=== PATIENT | male | born 1970 | race Caucasian/White ===

== ENCOUNTER 2017-07-26 20:30 | Inpatient (IN) | payer SELFPAY ==
--- NOTE | 2017-07-26 21:32 | RAD ---
PORTABLE CHEST: Date: 07/26/17 PROVIDED CLINICAL HISTORY: Chest pain. FINDINGS: Cardiac and mediastinal silhouette is within normal limits. Lungs appear clear. There is no pleural f luid or pneumothorax apparent. IMPRESSION: No evidence for an acute cardiopulmonary process. POS: SUSY
[2017-07-26 21:40] LABS: #Basophils 0.1 thou/uL (0.0-0.2); #Eosinphils 0.1 thou/uL (0.0-0.7); #Lymphocytes 3.6 thou/uL (1.20-3.40); #Monocytes 1.3 thou/uL (0.11-0.59); #Neutrophils 7.9 thou/uL (1.40-6.50); %Basophils 0.6 % (0.0-1.0); %Eosinophils 1.1 % (0.0-10.0); %Lymphocytes 27.8 % (21.0-51.0); %Neutrophils 60.5 % (42.0-75.0); Hemoglobin 17.3 g/dL (14.0-18.0); Mean Corpuscular HGB CONC 34.1 g/dL (32.0-36.0); Mean Corpuscular Hemoglobin 31.2 pg (27.0-31.0); Mean Corpuscular Volume 91.5 fl (80.0-94.0); Mean Platelet Volume 6.3 fL (7.4-10.4); Platelet Count 300 thou/uL (130-400); Red Blood Cell (RBC) Count 5.55 mill/uL (4.70-6.10); White Blood Cell (WBC) Count 13.1 thou/uL (4.8-10.8)
[2017-07-26 22:11] LABS: ALT (SGPT) 59 U/L (8-55); AST (SGOT) 96 U/L (5-34); Albumin 4.4 g/dL (3.5-5.0); Alkaline Phosphatase 75 U/L (40-150); Anion Gap 12 mmol/L (10-20); BUN (Urea Nitrogen) 12 mg/dL (8.9-20.6); Bilirubin, Total 0.9 mg/dL (0.2-1.2); CK (CPK) 932 U/L (30-200); Calc. Creatinine Clearance 0 mL/min (70-130); Carbon Dioxide 25 mmol/L (22-29); Chloride 101 mmol/L (98-107); Estimated GFR-MDRD 81; Globulin 4.9 g/dL (2.4-3.5); Glucose 126 mg/dL (70-105); Lipase 18 U/L (8-78); Potassium 3.3 mmol/L (3.5-5.1); Protein, Total 9.3 g/dL (6.0-8.3); Sodium 135 mmol/L (136-145)
[2017-07-26 22:12] LABS: CKMB 74.7 ng/mL (0-6.6); Troponin I 6.916 ng/mL (< 0.028)
[2017-07-26] MEDS ORDERED: Nitroglycerin 2% Ointment 1 INCH/1 GM Packet ONE (22:30)
[2017-07-26] MEDS ORDERED: Metoprolol Tartrate 5 MG/5 ML VIAL ONE ×2 (23:41→23:56)
[2017-07-26] MEDS ORDERED: Morphine 4 MG/ML VIAL ONE (23:42)
[2017-07-26] MEDS ORDERED: Nitroglycerin 0.4 MG TAB (25 Tab Bottle) ONE (23:54)
[2017-07-26] MEDS ORDERED: Nitroglycerin 50 MG/250 ML BOT 250 ML ONE (23:54)
[2017-07-27] MEDS ORDERED: Guaifenesin DM 100-10/5 ML UDCUP PO PRN (00:18)
[2017-07-27] MEDS ORDERED: Nitroglycerin 50 MG/250 ML BOT 250 ML IVPB SCH (00:18)
[2017-07-27] MEDS ORDERED: Acetaminophen 325 MG TAB PO PRN (00:18)
[2017-07-27] MEDS ORDERED: Nitroglycerin 0.4 MG TAB (25 Tab Bottle) SL PRN ×2 (00:18→10:46)
[2017-07-27 00:46] LABS: Platelet Count 290 thou/uL (130-400)
[2017-07-27 01:05] LABS: Troponin I 16.481 ng/mL (< 0.028)
[2017-07-27] MEDS ORDERED: Heparin 25,000 units/D5W 500 ML ONE (01:16)
[2017-07-27] MEDS ORDERED: Heparin 5,000 UNITS/ML VIAL ONE (01:16)
[2017-07-27] MEDS ORDERED: Ondansetron ODT 4 MG TAB ONE (01:45)
[2017-07-27 03:15] LABS: #Basophils 0.1 thou/uL (0.0-0.2); #Eosinphils 0.1 thou/uL (0.0-0.7); #Lymphocytes 3.9 thou/uL (1.20-3.40); #Monocytes 1.6 thou/uL (0.11-0.59); #Neutrophils 9.5 thou/uL (1.40-6.50); %Basophils 0.4 % (0.0-1.0); %Eosinophils 0.9 % (0.0-10.0); %Lymphocytes 25.7 % (21.0-51.0); %Monocytes 10.7 % (0.0-10.0); %Neutrophils 62.4 % (42.0-75.0); Hemoglobin 17.2 g/dL (14.0-18.0); Mean Corpuscular Hemoglobin 32.2 pg (27.0-31.0); Mean Corpuscular Volume 91.8 fl (80.0-94.0); Mean Platelet Volume 6.3 fL (7.4-10.4); Platelet Count 278 thou/uL (130-400); Red Blood Cell (RBC) Count 5.34 mill/uL (4.70-6.10); White Blood Cell (WBC) Count 15.3 thou/uL (4.8-10.8)
[2017-07-27 03:31] LABS: ALT (SGPT) 60 U/L (8-55); AST (SGOT) 127 U/L (5-34); Albumin 4.2 g/dL (3.5-5.0); Alkaline Phosphatase 70 U/L (40-150); Anion Gap 10 mmol/L (10-20); BUN (Urea Nitrogen) 12 mg/dL (8.9-20.6); Bilirubin, Total 0.8 mg/dL (0.2-1.2); Calc. Creatinine Clearance 0 mL/min (70-130); Calcium 9.8 mg/dL (7.8-10.44); Carbon Dioxide 27 mmol/L (22-29); Cardiac Risk 4.4 (Less than 4.5); Chloride 103 mmol/L (98-107); Cholesterol 189 mg/dl (< 200 Desired); Estimated GFR-MDRD Greater than 90; Globulin 4.5 g/dL (2.4-3.5); Glucose 131 mg/dL (70-105); HDL Cholesterol 43 mg/dL (>60 Neg Risk); LDL Cholesterol, Calculated 133 mg/dL; Potassium 3.6 mmol/L (3.5-5.1); Protein, Total 8.7 g/dL (6.0-8.3); Sodium 136 mmol/L (136-145); Triglycerides 67 mg/dL (Less than 150)
[2017-07-27 03:35] LABS: INR-International Normal Ratio 1.1; Prothrombin Time 14.6 SEC (12.0-14.7)
[2017-07-27 03:36] LABS: PTT 82.6 SEC (22.9-36.1)
[2017-07-27 03:38] LABS: Troponin I 24.625 ng/mL (< 0.028)
[2017-07-27 04:03] VITALS: BMI 26.7
--- NOTE | 2017-07-27 05:27 | HP ---
REASON FOR ADMISSION: Non-ST elevation myocardial infarction, uncontrolled hypertension. HISTORY OF PRESENTING ILLNESS: Patient gives history of having retrosternal chest pain for last 4 days. This has been coming usually on exertion. From 7: 00 p.m. on, patient started to have a constant retrosternal pain. This was 10/ 10 in intensity with no radiation. He has some dry cough due to his smoking habit. Patient finally made it to the emergency room, as the pain got worse. No prior history of coronary artery disease. He had a stress test done when he was 27 years old, which was negative. No complaints of fever or expectoration, but has dry cough. PAST MEDICAL AND SURGICAL HISTORY: Left foot surgery is for-fracture and has nine screws and a plate in it. ALLERGIES: No known drug allergies. CURRENT MEDICATIONS: None. PERSONAL HISTORY: Patient smokes one pack a day and has been doing so for the last 30 years. Quit alcohol 10 years back. Quit smoking marijuana 10 years back. FAMILY HISTORY: Father of massive OK at the age of 41 years. Mother is healthy. 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 REVIEW OF SYSTEMS: The following complete review of systems was negative, unless otherwise mentioned in the HPI or below: Constitutional: Weight loss or gain, ability to conduct usual activities. Skin: Rash, itching. Eyes: Double vision, pain. ENT/Mouth: Nose bleeding, neck stiffness, pain, tenderness. Cardiovascular: Palpitations, dyspnea on exertion, orthopnea. Respiratory: Shortness of breath, wheezing, cough, hemoptysis, fever, or night sweats. Gastrointestinal: Poor appetite, abdominal pain, heartburn, nausea, vomiting, constipation, or diarrhea. Genitourinary: Urgency, frequency, dysuria, nocturia. Musculoskeletal: Pain, swelling. Neurologic/Psychiatric: Anxiety, depression. Allergy/Immunologic: Skin rash, bleeding tendency. CODE STATUS: FULL. PHYSICAL EXAMINATION: GENERAL: Patient is a 47-year-old male, who is currently in [id number] distress from chest pain. VITAL SIGNS: Blood pressure 183/108 on arrival, pulse 84 per minute, respiratory rate 18 per minute, temperature 97.6 degrees Fahrenheit, saturating 97% on room air. NECK: Supple, no elevated JVD. HEENT: Extraocular muscles intact. Pupils reacting to light. Oral cavity mucous membranes are moist. No exudates or congestion. CARDIOVASCULAR SYSTEM: S1, S2 heard. Regular rhythm. RESPIRATORY SYSTEM: Basal rales plus air entry is 2+ bilateral. Scattered rhonchi plus. ABDOMEN: Soft, bowel sounds heard. No tenderness, rigidity, or guarding. EXTREMITIES: No peripheral edema or calf tenderness. VASCULAR SYSTEM: Peripheral pulses 1+ bilateral. No ischemic ulcerations or gangrene. CENTRAL NERVOUS SYSTEM: No gross focal deficits seen. Patient is alert, awake , and oriented well. PSYCHIATRIC SYSTEM: Patient is a bit anxious, otherwise no hallucinations or delusions. LABORATORY DATA AND X-RAY FINDINGS: White count of 13, H&H 17 and 50, platelet count is 300, MCV is 91 with 60% neutrophils. PTT is 32, potassium 3.3, serum bicarbonate 25, BUN 12, creatinine 0.9, glucose 126, calcium is 11, albumin is 4.4. AST 96, ALT 59, alkaline phosphatase 75. CK-MB 74.7. Troponin first set is 6.9, second set is 16.4, lipase is 18. Chest x-ray done shows no acute cardiopulmonary abnormalities. EKG done shows normal sinus rhythm at 95 beats per minute. There is poor R-wave progression. There are signs of LVH strain pattern seen. CLINICAL IMPRESSION AND PLAN: Patient will be admitted to ICU for non-ST elevation myocardial infarction with ongoing chest pain. He will be placed on nitroglycerin drip, full dose aspirin has been given in the ER. He will also be on heparin drip, morphine p.r.n. for pain, Lopressor 25 mg twice daily for cardiac protection. I have discussed his findings with Dr. Thomas. He will be kept n.p.o. for early cardiac catheterization this morning. DuoNeb q.6 hourly p.r.n. We will continue to closely monitor him in ICU. Please note, I have seen and examined the patient on 07/26/2017. MOISES
[2017-07-27] MEDS: Sodium Chloride 0.9% 1,000 ML IV SCH ×2 (05:47→19:39)
[2017-07-27] MEDS ORDERED: Iopamidol 370 76% 100 ML VIAL ONE (06:38)
[2017-07-27] MEDS ORDERED: Iopamidol 370 76% 50 ML VIAL FS ONE (06:38)
[2017-07-27] MEDS ORDERED: Mag-Al 1200 mg/1200 mg/30 ML UDCUP PO PRN (07:00)
[2017-07-27] MEDS ORDERED: Diabetic Tussin 200 MG/10 ML UDCUP PO PRN (07:00)
[2017-07-27] MEDS ORDERED: Zolpidem Tartrate 5 MG TAB PO PRN (07:00)
[2017-07-27] MEDS ORDERED: Ondansetron HCl/PF 4 MG/2 ML Vial IVP PRN (07:00)
[2017-07-27] MEDS ORDERED: Loperamide HCl 2 MG CAP PO PRN (07:00)
[2017-07-27] MEDS ORDERED: Eucerin (Mineral Oil/Petrolatum,White) 30 gm Jar TOP PRN (07:00)
[2017-07-27] MEDS ORDERED: Sodium Chloride 0.65% Nasal 44 ML BOT EA NARE PRN (07:00)
[2017-07-27] MEDS ORDERED: Chloraseptic Spray 180 ml Bottle PO PRN (07:00)
[2017-07-27] MEDS ORDERED: Loratadine 10 MG TAB PO PRN (07:00)
[2017-07-27] MEDS ORDERED: Senokot 8.6 MG TAB PO PRN (07:00)
[2017-07-27] MEDS ORDERED: hydrALAZINE 20 MG/ML VIAL SLOW IVP PRN (07:00)
[2017-07-27] MEDS ORDERED: Artificial Tears 18 DROP/0.9 ML EA EYE PRN (07:00)
[2017-07-27] MEDS ORDERED: Milk Of Magnesia 30 ML UDCUP PO PRN (07:00)
[2017-07-27] MEDS ORDERED: Ondansetron ODT 4 MG TAB PO PRN (07:00)
[2017-07-27] MEDS ORDERED: Lidocaine 1% (PF) 30 ML VIAL ONE (07:27)
[2017-07-27] MEDS ORDERED: Aspirin 325 mg Enteric Coated Tablet PO SCH (09:00)
[2017-07-27] MEDS ORDERED: Heparin 10,000 UNITS/1 ML VIAL ONE ×2 (09:34→09:46)
[2017-07-27] MEDS ORDERED: Clopidogrel Bisulfate 300 MG TAB ONE (09:46)
[2017-07-27] MEDS ORDERED: Verapamil 5 MG/2 ML VIAL ONE (09:54)
[2017-07-27] MEDS ORDERED: Nitroglycerin 100MG/250ML BOT 250 ML ONE (09:55)
[2017-07-27] MEDS ORDERED: Adenosine 6 MG/2 ML VIAL ONE (09:55)
[2017-07-27] MEDS ORDERED: Fentanyl 100 MCG/2 ML VIAL ONE (10:15)
[2017-07-27] MEDS ORDERED: Midazolam HCl 2 mg/2 ml Vial ONE (10:15)
[2017-07-27] MEDS ORDERED: Ondansetron HCl/PF 4 MG/2 ML Vial ONE (10:18)
--- NOTE | 2017-07-27 10:30 | CON ---
DATE OF CONSULTATION: 07/26/2017 HISTORY: This patient is a 47-year-old gentleman who presents for evaluation of chest discomfort. T he patient has no previous cardiac history. He states several days ago he had a brief episode of mylene st pain that lasted several minutes. The chest pain subsequently resolved. Today, the patient felt recurrent chest discomfort. He reports that this lasted for several hours. He eventually came to [facility] emergency room with chest discomfort. PAST MEDICAL HISTORY: None. PAST SURGICAL HISTORY: None. SOCIAL HISTORY: Long history of tobacco abuse. FAMILY HISTORY: ALLERGIES: No known drug allergies. MEDICATIONS: None. PHYSICAL EXAMINATION: GENERAL: This is a middle-aged gentleman in no acute distress. VITAL SIGNS: Blood pressure was 170/105. NECK: Showed no jugular venous distention. LUNGS: Clear to auscultation. HEART: Regular rate and rhythm, normal S1, S2, no murmurs. ABDOMEN: Nondistended. EXTREMITIES: No edema. LABORATORY RESULTS: Sodium 135, potassium 3.3, chloride 101, bicarbonate 25, BUN 12, creatinine 0.99 , glucose 126. CPK MB was 74 with a troponin of 6.9. White blood cell count is 13.1, hemoglobin 7.3 , hematocrit 50.8 and platelets are 300. His EKG revealed normal sinus rhythm with ST depression suggestive of ischemia. IMPRESSION: 1. Non-Q-wave myocardial infarction. 2. Tobacco abuse. This gentleman has suffered a non-Q-wave myocardial infarction. He at this time reports having mild chest discomfort. The patient will be treated with IV heparin and IV nitroglycerin. I have recommen ded the patient proceed with cardiac catheterization during this hospitalization. The risks involved in cardiac catheterization include [place], bleeding, stroke, cardiac arrhythmia, cardiac have been explained. Risks involved in stent placement and restenosis have also been explained. The patient understands these risks and will proceed. Time spent 40 minutes.
[2017-07-27] MEDS ORDERED: Sodium Chloride 0.9% 1,000 ML IV SCH (10:46)
[2017-07-27] MEDS ORDERED: Morphine 4 MG/ML VIAL SLOW IVP PRN (11:00)
--- NOTE | 2017-07-27 11:23 | PDOC.PN ---
- Subjective Encounter Start Date: 07/27/17 Encounter Start Time: 09:45 -: old records requested/rev Patient seen and examined for nstemi. No new complaints. No overnight events currently chest pain free - Objective MAR Reviewed: Yes Vital Signs & Weight: Vital Signs (12 hours) Temp Pulse Resp Pulse Ox 07/27/17 08:00 98.0 F 87 18 99 07/27/17 04:12 98.3 F 85 20 94 L 07/27/17 04:00 98.3 F Weight Weight 191 lb 12.835 oz Most Recent Monitor Data Heart Rate from ECG 95 NIBP 119/77 NIBP BP-Mean 91 Respiration from ECG 9 SpO2 100 I&O: 07/26/17 07/27/17 07/28/17 06:59 06:59 06:59 Intake Total 59 Output Total 0 0 Balance 59 0 Result Diagrams: 07/27/17 03:02 07/27/17 03:02 Radiology Reviewed by me: Yes (chest xray) EKG Reviewed by me: Yes (nsr) Phys Exam - Physical Examination Constitutional: NAD HEENT: PERRLA, moist MMs, sclera anicteric Neck: no nodes, no JVD, supple, full ROM Respiratory: no wheezing, no rales, no rhonchi Cardiovascular: RRR, no significant murmur, no rub Gastrointestinal: soft, non-tender, no distention, positive bowel sounds Musculoskeletal: no edema, pulses present Neurological: non-focal, normal sensation, moves all 4 limbs Psychiatric: normal affect, A&O x 3 Skin: no rash, normal turgor Dx/Plan (1) NSTEMI (non-ST elevated myocardial infarction) Code(s): I21.4 - NON-ST ELEVATION (NSTEMI) MYOCARDIAL INFARCTION Status: Acute (2) Elevated CK Status: Acute (3) Hypokalemia Code(s): E87.6 - HYPOKALEMIA Status: Acute (4) Transaminitis Code(s): R74.0 - NONSPEC ELEV OF LEVELS OF TRANSAMNS & LACTIC ACID DEHYDRGNSE Status: Acute (5) Tobacco abuse Code(s): Z72.0 - TOBACCO USE Status: Chronic (6) Hypercalcemia Code(s): E83.52 - HYPERCALCEMIA Status: Resolved (7) Leucocytosis Code(s): D72.829 - ELEVATED WHITE BLOOD CELL COUNT, UNSPECIFIED Status: Acute - Plan cont current plan of care, plan discussed w/ family * currently on NTG drip, chest pain free * plan for cardiac cath, found with 2 vessel CAD, 90 % mild LAD and 99% 1st Ob Marginal * cardiology following * echo pending * will repeat labs tomorrow * currently on optimum medical therapy for nstemi as below, with aspirin, plavix , BB, statin * medication reviewed as below * symptomatic treatment * discussed with family bedside. Review of Systems - Review of Systems Eyes: negative: Pain, Vision Change, Conjunctivae Inflammation, Eyelid Inflammation, Redness, Other ENT: negative: Ear Pain, Ear Discharge, Nose Pain, Nose Discharge, Nose Congestion, Mouth Pain, Mouth Swelling, Throat Pain, Throat Swelling, Other Respiratory: negative: Cough, Dry, Shortness of Breath, Hemoptysis, SOB with Excertion, Pleuritic Pain, Sputum, Wheezing Cardiovascular: negative: chest pain, palpitations, orthopnea, paroxysmal nocturnal dyspnea, edema, light headedness, other Gastrointestinal: negative: Nausea, Vomiting, Abdominal Pain, Diarrhea, Constipation, Melena, Hematochezia, Other Genitourinary: negative: Dysuria, Frequency, Incontinence, Hematuria, Retention , Other Musculoskeletal: negative: Neck Pain, Shoulder Pain, Arm Pain, Back Pain, Hand Pain, Leg Pain, Foot Pain, Other Skin: negative: Rash, Lesions, Duncan, Bruising, Other - Medications/Allergies Allergies/Adverse Reactions: Allergies Allergy/AdvReac Type Severity Reaction Status Date / Time Penicillins Allergy Verified 07/27/17 05:47 Medications: Current Medications Acetaminophen (Tylenol) 650 mg PO Q4H PRN PRN Reason: Headache/Fever or Pain Al Hydroxide/Mg Hydroxide (Maalox) 15 ml PO Q4H PRN PRN Reason: Heartburn or Indigestion Albuterol/Ipratropium (Duoneb) 3 ml NEB [id number] PRN PRN Reason: SOB &/or Wheezing Artificial Tears (Tears Naturale) 0 drop EA EYE PRN PRN PRN Reason: Dry Eyes Aspirin (Ecotrin) 325 mg PO DAILY [facility] Aspirin (Aspirin Chewable) 81 mg PO DAILY [facility] Atorvastatin Calcium (Lipitor) 80 mg PO HS [facility] Carvedilol (Coreg) 3.125 mg PO BID [facility] Clopidogrel Bisulfate (Plavix) 75 mg PO DAILY [facility] Famotidine (Pepcid) 20 mg PO Q12HR [facility] Guaifenesin (Robitussin Sf) 200 mg PO Q4H PRN PRN Reason: Cough Guaifenesin/Dextromethorphan (Robitussin Dm) 15 ml PO Q4H PRN PRN Reason: Cough Hydralazine HCl (Apresoline) 10 mg SLOW IVP Q4H PRN PRN Reason: Systolic BP > 180 Nitroglycerin/Dextrose (Nitroglycerin 50 Mg/250 Ml Bot) 250 mls @ 0 mls/hr IVPB INF [place]; Titrate PRN Reason: Protocol Sodium Chloride (Normal Saline 0.9%) 1,000 mls @ 80 mls/hr IV .[id number] [facility] Last Admin: 07/27/17 05:47 Dose: 1,000 mls Sodium Chloride (Normal Saline 0.9%) 1,000 mls @ 100 mls/hr IV .Q10H [facility] Stop: 07/27/17 18:47 Loperamide HCl (Imodium) 2 mg PO PRN PRN PRN Reason: Diarrhea/Loose Stools Loratadine (Claritin) 10 mg PO DAILYPRN PRN PRN Reason: Sinus Symptoms Magnesium Hydroxide (Milk Of Magnesium) 30 ml PO DAILYPRN PRN PRN Reason: Constipation Metoprolol Tartrate (Lopressor) 25 mg PO BID [facility] Mineral Oil/White Petrolatum (Eucerin Cream) 0 gm TOP BIDPRN PRN PRN Reason: Dry Skin Morphine Sulfate (Morphine) 2 mg SLOW IVP Q4H PRN PRN Reason: Moderate Pain (4-6) Nitroglycerin (Nitrostat) 0.4 mg SL Q5MIN PRN PRN Reason: Chest Pain Nitroglycerin (Nitrostat) 0.4 mg SL Q5MIN PRN PRN Reason: Chest Pain Ondansetron HCl (Zofran Odt) 4 mg PO Q6H PRN PRN Reason: Nausea/Vomiting Ondansetron HCl (Zofran) 4 mg IVP Q6H PRN PRN Reason: Nausea/Vomiting Phenol (Chloraseptic [place] 180 Ml Bot) 0 ml PO PRN PRN PRN Reason: Sore Throat Senna (Senokot) 2 tab PO HSPRN PRN PRN Reason: Constipation Sodium Chloride (Flush - Normal Saline) 10 ml IVF Q12HR [place] Sodium Chloride (Flush - Normal Saline) 10 ml IVF PRN PRN PRN Reason: Saline Flush Sodium Chloride ([place] Nasal [place] 0.65%) 0 ml EA NARE QIDPRN PRN PRN Reason: Nasal Congestion Zolpidem Tartrate (Ambien) 5 mg PO HSPRN PRN PRN Reason: Insomnia
[2017-07-27] MEDS: Metoprolol Tartrate 25 MG TAB PO SCH ×2 (14:24→21:16)
[2017-07-27] MEDS: Famotidine 20 MG TAB PO SCH ×2 (14:24→21:16)
[2017-07-27] MEDS: Atorvastatin Calcium 40 MG TAB PO SCH (21:16)
[2017-07-27] MEDS: Carvedilol 3.125 MG TAB PO SCH (21:16)
--- NOTE | 2017-07-27 23:50 | EKG ---
Test Reason : POST STENTS X 2 Blood Pressure : / mmHG Vent. Rate : 078 BPM Atrial Rate : 078 BPM P-R Int : 128 ms QRS Dur : 092 ms QT Int : 398 ms P-R-T Axes : 069 -19 260 degrees QTc Int : 453 ms Normal sinus rhythm with sinus arrhythmia Abnormal ECG When compared with ECG of 27-JUL-2017 01:13, (Unconfirmed) Premature atrial complexes are no longer Present T wave inversion now evident in Inferior leads Inverted T waves have replaced nonspecific T wave abnormality in Lateral leads Confirmed by CATHY CHICAS, DR. Nguyễn ([id number]) on 07/27/2017 11:49:51 PM Referred By: YARELIS Confirmed By:DR. Gopi MORGAN MD
[2017-07-28] MEDS: Sodium Chloride 0.9% 1,000 ML IV SCH (01:31)
[2017-07-28 07:51] LABS: #Basophils 0.1 thou/uL (0.0-0.2); #Eosinphils 0.2 thou/uL (0.0-0.7); #Lymphocytes 2.7 thou/uL (1.20-3.40); #Monocytes 1.2 thou/uL (0.11-0.59); %Basophils 0.7 % (0.0-1.0); %Eosinophils 1.4 % (0.0-10.0); %Lymphocytes 24.2 % (21.0-51.0); %Monocytes 10.8 % (0.0-10.0); %Neutrophils 62.9 % (42.0-75.0); Hemoglobin 16.5 g/dL (14.0-18.0); Mean Corpuscular HGB CONC 35.1 g/dL (32.0-36.0); Mean Corpuscular Hemoglobin 32.9 pg (27.0-31.0); Mean Corpuscular Volume 93.7 fl (80.0-94.0); Mean Platelet Volume 6.8 fL (7.4-10.4); Platelet Count 244 thou/uL (130-400); Red Blood Cell (RBC) Count 5.01 mill/uL (4.70-6.10); White Blood Cell (WBC) Count 11.1 thou/uL (4.8-10.8)
[2017-07-28 08:02] LABS: Anion Gap 13 mmol/L (10-20); BUN (Urea Nitrogen) 8 mg/dL (8.9-20.6); Calc. Creatinine Clearance 154 mL/min (70-130); Calcium 9.3 mg/dL (7.8-10.44); Carbon Dioxide 18 mmol/L (22-29); Chloride 107 mmol/L (98-107); Estimated GFR-MDRD Greater than 90; Glucose 103 mg/dL (70-105); Potassium 4.3 mmol/L (3.5-5.1); Sodium 134 mmol/L (136-145)
[2017-07-28] MEDS: Metoprolol Tartrate 25 MG TAB PO SCH (08:30)
[2017-07-28] MEDS: Famotidine 20 MG TAB PO SCH ×2 (08:30→21:55)
[2017-07-28] MEDS: Carvedilol 3.125 MG TAB PO SCH (08:31)
[2017-07-28] MEDS: Clopidogrel Bisulfate 75 MG TAB PO SCH (08:31)
--- NOTE | 2017-07-28 09:52 | PDOC.PN ---
- Subjective Encounter Start Date: 07/28/17 Encounter Start Time: 07:50 -: old records requested/rev Patient seen and examined for nstemi. No new complaints. No overnight events - Objective MAR Reviewed: Yes Vital Signs & Weight: Vital Signs (12 hours) Temp Pulse Resp Pulse Ox 07/28/17 08:00 98.1 F 86 21 H 100 07/28/17 07:25 100 07/28/17 07:00 98.1 F 07/28/17 04:00 98.7 F 07/28/17 00:00 98.6 F Weight Weight 191 lb 12.835 oz Most Recent Monitor Data Heart Rate from ECG 80 NIBP 135/84 NIBP BP-Mean 96 Respiration from ECG 20 SpO2 99 I&O: 07/27/17 07/28/17 07/29/17 06:59 06:59 06:59 Intake Total 59 2703 240 Output Total 0 3000 Balance 59 -297 240 Result Diagrams: 07/28/17 07:38 07/28/17 07:38 EKG Reviewed by me: Yes (nsr) Phys Exam - Physical Examination Constitutional: NAD HEENT: PERRLA, moist MMs, sclera anicteric Neck: no JVD, supple Respiratory: no wheezing, no rales, no rhonchi Cardiovascular: RRR, no significant murmur, no rub Gastrointestinal: soft, non-tender, no distention, positive bowel sounds Musculoskeletal: no edema, pulses present Neurological: non-focal, normal sensation, moves all 4 limbs Psychiatric: normal affect, A&O x 3 Skin: no rash, normal turgor Dx/Plan (1) NSTEMI (non-ST elevated myocardial infarction) Code(s): I21.4 - NON-ST ELEVATION (NSTEMI) MYOCARDIAL INFARCTION Status: Acute (2) Elevated CK Status: Acute (3) Hypokalemia Code(s): E87.6 - HYPOKALEMIA Status: Acute (4) Transaminitis Code(s): R74.0 - NONSPEC ELEV OF LEVELS OF TRANSAMNS & LACTIC ACID DEHYDRGNSE Status: Acute (5) Tobacco abuse Code(s): Z72.0 - TOBACCO USE Status: Chronic (6) Hypercalcemia Code(s): E83.52 - HYPERCALCEMIA Status: Resolved (7) Leucocytosis Code(s): D72.829 - ELEVATED WHITE BLOOD CELL COUNT, UNSPECIFIED Status: Acute - Plan cont current plan of care * transfer to tele * now off NTG drip and will DC IVF after current bag * currently on optimum medical therapy * pt had 2 stent placed * will continue cardiac rehab * expecting discharge tomorrow * medication reviewed as below * symptomatic treatment. Review of Systems - Review of Systems Constitutional: negative: fever, chills, sweats, weakness, malaise, other Eyes: negative: Pain, Vision Change, Conjunctivae Inflammation, Eyelid Inflammation, Redness, Other ENT: negative: Ear Pain, Ear Discharge, Nose Pain, Nose Discharge, Nose Congestion, Mouth Pain, Mouth Swelling, Throat Pain, Throat Swelling, Other Respiratory: negative: Cough, Dry, Shortness of Breath, Hemoptysis, SOB with Excertion, Pleuritic Pain, Sputum, Wheezing Cardiovascular: negative: chest pain, palpitations, orthopnea, paroxysmal nocturnal dyspnea, edema, light headedness, other Gastrointestinal: negative: Nausea, Vomiting, Abdominal Pain, Diarrhea, Constipation, Melena, Hematochezia, Other Genitourinary: negative: Dysuria, Frequency, Incontinence, Hematuria, Retention , Other Musculoskeletal: negative: Neck Pain, Shoulder Pain, Arm Pain, Back Pain, Hand Pain, Leg Pain, Foot Pain, Other Skin: negative: Rash, Lesions, Duncan, Bruising, Other Neurological: negative: Weakness, Numbness, Incoordination, Change in Speech, Confusion, Seizures, Other - Medications/Allergies Allergies/Adverse Reactions: Allergies Allergy/AdvReac Type Severity Reaction Status Date / Time Penicillins Allergy Verified 07/27/17 05:47 Medications: Current Medications Acetaminophen (Tylenol) 650 mg PO Q4H PRN PRN Reason: Headache/Fever or Pain Al Hydroxide/Mg Hydroxide (Maalox) 15 ml PO Q4H PRN PRN Reason: Heartburn or Indigestion Albuterol/Ipratropium (Duoneb) 3 ml NEB T3PT-GM PRN PRN Reason: SOB &/or Wheezing Artificial Tears (Tears Naturale) 0 drop EA EYE PRN PRN PRN Reason: Dry Eyes Aspirin (Aspirin Chewable) 81 mg PO DAILY [facility] Last Admin: 07/28/17 08:30 Dose: 81 mg Atorvastatin Calcium (Lipitor) 80 mg PO HS [facility] Last Admin: 07/27/17 21:16 Dose: 80 mg Clopidogrel Bisulfate (Plavix) 75 mg PO DAILY [facility] Last Admin: 07/28/17 08:31 Dose: 75 mg Famotidine (Pepcid) 20 mg PO Q12HR [facility] Last Admin: 07/28/17 08:30 Dose: 20 mg Guaifenesin (Robitussin Sf) 200 mg PO Q4H PRN PRN Reason: Cough Guaifenesin/Dextromethorphan (Robitussin Dm) 15 ml PO Q4H PRN PRN Reason: Cough Hydralazine HCl (Apresoline) 10 mg SLOW IVP Q4H PRN PRN Reason: Systolic BP > 180 Loperamide HCl (Imodium) 2 mg PO PRN PRN PRN Reason: Diarrhea/Loose Stools Loratadine (Claritin) 10 mg PO DAILYPRN PRN PRN Reason: Sinus Symptoms Magnesium Hydroxide (Milk Of Magnesium) 30 ml PO DAILYPRN PRN PRN Reason: Constipation Metoprolol Succinate (Toprol Xl) 50 mg PO DAILY [facility] Mineral Oil/White Petrolatum (Eucerin Cream) 0 gm TOP BIDPRN PRN PRN Reason: Dry Skin Morphine Sulfate (Morphine) 2 mg SLOW IVP Q4H PRN PRN Reason: Moderate Pain (4-6) Last Admin: 07/27/17 11:48 Dose: 2 mg Nitroglycerin (Nitrostat) 0.4 mg SL Q5MIN PRN PRN Reason: Chest Pain Nitroglycerin (Nitrostat) 0.4 mg SL Q5MIN PRN PRN Reason: Chest Pain Ondansetron HCl (Zofran Odt) 4 mg PO Q6H PRN PRN Reason: Nausea/Vomiting Ondansetron HCl (Zofran) 4 mg IVP Q6H PRN PRN Reason: Nausea/Vomiting Phenol (Chloraseptic [place] 180 Ml Bot) 0 ml PO PRN PRN PRN Reason: Sore Throat Senna (Senokot) 2 tab PO HSPRN PRN PRN Reason: Constipation Sodium Chloride (Flush - Normal Saline) 10 ml IVF Q12HR [facility] Last Admin: 07/28/17 08:32 Dose: 10 ml Sodium Chloride (Flush - Normal Saline) 10 ml IVF PRN PRN PRN Reason: Saline Flush Sodium Chloride ([place] Nasal [place] 0.65%) 0 ml EA NARE QIDPRN PRN PRN Reason: Nasal Congestion Zolpidem Tartrate (Ambien) 5 mg PO HSPRN PRN PRN Reason: Insomnia
--- NOTE | 2017-07-28 20:33 | EKG ---
Test Reason : Blood Pressure : / mmHG Vent. Rate : 067 BPM Atrial Rate : 067 BPM P-R Int : 112 ms QRS Dur : 094 ms QT Int : 406 ms P-R-T Axes : -27 003 111 degrees QTc Int : 429 ms Normal sinus rhythm Abnormal ECG When compared with ECG of 27-JUL-2017 11:35, T wave inversion no longer evident in Inferior leads Confirmed by CATHY CHICAS, DR. Nguyễn (4) on 07/28/2017 8:33:14 PM Referred By: YARELIS Confirmed By:DR. Gopi MORGAN MD
[2017-07-28] MEDS: Atorvastatin Calcium 40 MG TAB PO SCH (21:55)
[2017-07-29] MEDS: Clopidogrel Bisulfate 75 MG TAB PO SCH (08:19)
[2017-07-29] MEDS: Famotidine 20 MG TAB PO SCH (08:19)
[2017-07-29] MEDS ORDERED: Lisinopril 10 MG TAB PO SCH (09:00)
--- NOTE | 2017-07-29 10:04 | PDOC.PN ---
- Subjective Encounter Start Date: 07/29/17 Encounter Start Time: 07:50 Patient seen and examined for nstemi. No new complaints. No overnight events - Objective MAR Reviewed: Yes Vital Signs & Weight: Vital Signs (12 hours) Temp Pulse Resp BP Pulse Ox 07/29/17 08:00 96.7 F L 79 16 07/29/17 07:42 96.7 F L 79 16 157/95 H 96 07/29/17 04:00 98.3 F 84 18 131/79 98 Weight Weight 191 lb 12.835 oz Most Recent Monitor Data Heart Rate from ECG 66 NIBP 147/95 NIBP BP-Mean 121 Respiration from ECG 14 SpO2 90 I&O: 07/28/17 07/29/17 07/30/17 06:59 06:59 06:59 Intake Total 2703 1000 Output Total 3000 1200 Balance -297 -200 Result Diagrams: 07/28/17 07:38 07/28/17 07:38 EKG Reviewed by me: Yes (nsr) Phys Exam - Physical Examination Constitutional: NAD HEENT: PERRLA, moist MMs, sclera anicteric Neck: no JVD, supple Respiratory: no wheezing, no rales, no rhonchi Cardiovascular: RRR, no significant murmur, no rub Gastrointestinal: soft, non-tender, no distention, positive bowel sounds Musculoskeletal: no edema, pulses present Neurological: non-focal, normal sensation, moves all 4 limbs Lymphatic: no nodes Psychiatric: normal affect, A&O x 3 Skin: no rash, normal turgor Dx/Plan (1) NSTEMI (non-ST elevated myocardial infarction) Code(s): I21.4 - NON-ST ELEVATION (NSTEMI) MYOCARDIAL INFARCTION Status: Acute (2) Elevated CK Status: Resolved (3) Hypokalemia Code(s): E87.6 - HYPOKALEMIA Status: Resolved (4) Transaminitis Code(s): R74.0 - NONSPEC ELEV OF LEVELS OF TRANSAMNS & LACTIC ACID DEHYDRGNSE Status: Resolved (5) Tobacco abuse Code(s): Z72.0 - TOBACCO USE Status: Chronic (6) Hypercalcemia Code(s): E83.52 - HYPERCALCEMIA Status: Resolved (7) Leucocytosis Code(s): D72.829 - ELEVATED WHITE BLOOD CELL COUNT, UNSPECIFIED Status: Resolved - Plan cont current plan of care * pt is insisting on going home * spoke with cardiology * if cardio clears, will consider discharge per pt request * medication reviewed as below * symptomatic treatment * counselled to avoid smoking and medication compliance. Review of Systems - Review of Systems Constitutional: negative: fever, chills, sweats, weakness, malaise, other Eyes: negative: Pain, Vision Change, Conjunctivae Inflammation, Eyelid Inflammation, Redness, Other ENT: negative: Ear Pain, Ear Discharge, Nose Pain, Nose Discharge, Nose Congestion, Mouth Pain, Mouth Swelling, Throat Pain, Throat Swelling, Other Respiratory: negative: Cough, Dry, Shortness of Breath, Hemoptysis, SOB with Excertion, Pleuritic Pain, Sputum, Wheezing Cardiovascular: negative: chest pain, palpitations, orthopnea, paroxysmal nocturnal dyspnea, edema, light headedness, other Gastrointestinal: negative: Nausea, Vomiting, Abdominal Pain, Diarrhea, Constipation, Melena, Hematochezia, Other Genitourinary: negative: Dysuria, Frequency, Incontinence, Hematuria, Retention , Other Musculoskeletal: negative: Neck Pain, Shoulder Pain, Arm Pain, Back Pain, Hand Pain, Leg Pain, Foot Pain, Other Skin: negative: Rash, Lesions, Duncan, Bruising, Other Neurological: negative: Weakness, Numbness, Incoordination, Change in Speech, Confusion, Seizures, Other - Medications/Allergies Allergies/Adverse Reactions: Allergies Allergy/AdvReac Type Severity Reaction Status Date / Time Penicillins Allergy Verified 07/27/17 05:47 Medications: Current Medications Acetaminophen (Tylenol) 650 mg PO Q4H PRN PRN Reason: Headache/Fever or Pain Al Hydroxide/Mg Hydroxide (Maalox) 15 ml PO Q4H PRN PRN Reason: Heartburn or Indigestion Albuterol/Ipratropium (Duoneb) 3 ml NEB [id number] PRN PRN Reason: SOB &/or Wheezing Artificial Tears (Tears Naturale) 0 drop EA EYE PRN PRN PRN Reason: Dry Eyes Aspirin (Aspirin Chewable) 81 mg PO DAILY [facility] Last Admin: 07/29/17 08:19 Dose: 81 mg Atorvastatin Calcium (Lipitor) 40 mg PO HS [facility] Clopidogrel Bisulfate (Plavix) 75 mg PO DAILY [facility] Last Admin: 07/29/17 08:19 Dose: 75 mg Famotidine (Pepcid) 20 mg PO Q12HR [facility] Last Admin: 07/29/17 08:19 Dose: 20 mg Guaifenesin (Robitussin Sf) 200 mg PO Q4H PRN PRN Reason: Cough Guaifenesin/Dextromethorphan (Robitussin Dm) 15 ml PO Q4H PRN PRN Reason: Cough Hydralazine HCl (Apresoline) 10 mg SLOW IVP Q4H PRN PRN Reason: Systolic BP > 180 Lisinopril (Zestril) 10 mg PO DAILY [facility] Last Admin: 07/29/17 09:56 Dose: 10 mg Loperamide HCl (Imodium) 2 mg PO PRN PRN PRN Reason: Diarrhea/Loose Stools Loratadine (Claritin) 10 mg PO DAILYPRN PRN PRN Reason: Sinus Symptoms Magnesium Hydroxide (Milk Of Magnesium) 30 ml PO DAILYPRN PRN PRN Reason: Constipation Metoprolol Succinate (Toprol Xl) 50 mg PO DAILY [facility] Last Admin: 07/29/17 08:19 Dose: 50 mg Mineral Oil/White Petrolatum (Eucerin Cream) 0 gm TOP BIDPRN PRN PRN Reason: Dry Skin Morphine Sulfate (Morphine) 2 mg SLOW IVP Q4H PRN PRN Reason: Moderate Pain (4-6) Last Admin: 07/27/17 11:48 Dose: 2 mg Nitroglycerin (Nitrostat) 0.4 mg SL Q5MIN PRN PRN Reason: Chest Pain Nitroglycerin (Nitrostat) 0.4 mg SL Q5MIN PRN PRN Reason: Chest Pain Ondansetron HCl (Zofran Odt) 4 mg PO Q6H PRN PRN Reason: Nausea/Vomiting Ondansetron HCl (Zofran) 4 mg IVP Q6H PRN PRN Reason: Nausea/Vomiting Phenol (Chloraseptic Cherry 180 Ml Bot) 0 ml PO PRN PRN PRN Reason: Sore Throat Senna (Senokot) 2 tab PO HSPRN PRN PRN Reason: Constipation Sodium Chloride (Flush - Normal Saline) 10 ml IVF Q12HR [facility] Last Admin: 07/29/17 08:19 Dose: 10 ml Sodium Chloride (Flush - Normal Saline) 10 ml IVF PRN PRN PRN Reason: Saline Flush Sodium Chloride ([place] Nasal Cherry 0.65%) 0 ml EA NARE QIDPRN PRN PRN Reason: Nasal Congestion Zolpidem Tartrate (Ambien) 5 mg PO HSPRN PRN PRN Reason: Insomnia
[2017-07-29 10:50] VITALS: BP 147/91; TEMP 97
--- NOTE | 2017-07-29 11:58 | DIS ---
DATE OF ADMISSION: 07/27/2017 DATE OF DISCHARGE: 07/29/2017 PRIMARY CARE PHYSICIAN: [facility] call admission. DISCHARGE DISPOSITION: Home. PRIMARY DISCHARGE DIAGNOSIS: Non-ST elevation myocardial infarction. SECONDARY DISCHARGE DIAGNOSIS: Tobacco abuse disorder. PRIMARY PROCEDURE/OPERATION: Cardiac catheterization was performed by Dr. Thomas and the patient w as found with 90% stenosis in mid LAD as well as 99% stenosis in first obtuse marginal, drug-eluting stent was placed at both locations. RADIOLOGICAL INVESTIGATION: Chest x-ray showed no acute cardiopulmonary process. Echocardiography d one while in hospital, but official report is pending. SIGNIFICANT LABORATORY DATA: WBC 11.1, hemoglobin 16.5, platelet 244. INR 1.1. Sodium 134, potassi um 4.3, BUN 8, creatinine 0.72, calcium 9.3, CK is 932, CK-MB 74.7, troponin 24.625, LDL 133, and lip ase 18. DISCHARGE MEDICATIONS: Aspirin 81 mg p.o. daily, Plavix 75 mg p.o. daily, Toprol-XL 50 mg p.o. daily , Pepcid 20 mg p.o. twice daily, Lipitor 80 mg p.o. daily, Pepcid 20 mg p.o. b.i.d., lisinopril 10 mg p.o. daily. CONTRAINDICATIONS: None. CODE STATUS: FULL CODE. INPATIENT DUMP GRADER: Dr. Thomas was consulted while in hospital. TEST RESULTS PENDING ON DISCHARGE: None. ALLERGIES: PENICILLIN. DISCHARGE PLAN: Post hospital, patient is advised to follow up with Dr. Thomas in 2-3 weeks. The patient is advised to follow up with primary care physician. HOSPITAL COURSE: A 47-year-old male with above-mentioned medical problem who was admitted by Dr. Seun landis. Please see his H&P for further detail. He was admitted on 07/27/2017. The patient was downing ving acute chest pain. His chest pain description was consistent with angina. He had significantly abnormal troponin. He was having persistent anginal pain and that is why he required ICU admission. He was treated with nitro drip and heparin. Subsequently next day, patient was taken for cardiac ca theterization. Patient was found with 2-vessel CAD. The patient had drug-eluting stent placed by Dr Jose Thomas. During this admission, we started Toprol-XL, Lipitor 80 as well as aspirin and Plavix. I had extensive discussion with the patient about smoking cessation as well as healthy lifestyle mike ures discussed with the patient. During this admission, patient's blood pressure was relatively high and that is why we started lisinopril on discharge, Toprol-XL was continued. The patient is completely chest pain free and he was feeling a lot better after stent placement. I h ad lengthy discussion about continuing aspirin and Plavix without any missing medication and medicati on compliance education was given. This patient is insisting on going home today. As long as Dr. Thomas is okay, then we will conside r discharging him home. On admission, he had mild hyponatremia, hypokalemia, hypercalcemia that was improved. He has abnorma l LFT and that is why we advised him to follow up with primary care physician for repeat LFT testing. All new medication prescription given. The patient is seen and examined at bedside today. Please see my progress note from today for furthe r detail.
[2017-07-29] MEDS ORDERED: Atorvastatin Calcium 40 MG TAB PO SCH (21:00)
== END 2017-07-29 14:59 | disposition home or self-care (01) | DRG 247 ==
LOC: ERS 20:30 → ERHOLD 07-27 00:29 → CCU 07-27 04:00 → 2NO 07-28 14:20
PROVIDERS: ADMIT Internal Medicine; ATTEND Internal Medicine
PROC: 027135Z Dilation of Coronary Artery, Two Arteries with Two Drug-eluting Intraluminal Devices, Percutaneous Approach (ICD-10-PCS; principal; 2017-07-27)
PROC: 4A023N7 Measurement of Cardiac Sampling and Pressure, Left Heart, Percutaneous Approach (ICD-10-PCS; 2017-07-27)
PROC: B2111ZZ Fluoroscopy of Multiple Coronary Arteries using Low Osmolar Contrast (ICD-10-PCS; 2017-07-27)
DX: I21.4 Non-ST elevation (NSTEMI) myocardial infarction (principal); I10 Essential (primary) hypertension; F17.210 Nicotine dependence, cigarettes, uncomplicated; R74.0 Nonspecific elevation of levels of transaminase and lactic acid dehydrogenase [LDH]; E83.52 Hypercalcemia; D72.829 Elevated white blood cell count, unspecified; E87.6 Hypokalemia
CPT/HCPCS: 36415; 71045; 80048; 80053; 80061; 82550; 82553; 83690; 84484; 85025; 85049; 85347; 85610; 85730; 92928; 92929; 93005; 93010; 93306; 93458; 93798; 94760; 96365; 96366; 96375; 99152; A4216; C1725; C1769; C1874; C1887; C9600; C9601; J0153; J1644; J2001; J2250; J2270; J2405; J3010; Q0162

== ENCOUNTER 2018-09-22 22:09 | Emergency (ER) | payer SELFPAY | END 2018-09-22 22:36 | disposition home or self-care (01) | LOC: ERS 22:09 | DX: S43.004A Unspecified dislocation of right shoulder joint, initial encounter (principal); I25.2 Old myocardial infarction; F17.210 Nicotine dependence, cigarettes, uncomplicated; W19.XXXA Unspecified fall, initial encounter | CPT/HCPCS: 23650 ==